=== PATIENT | female | born 1945 | race Caucasian/White ===

== ENCOUNTER → 2017-01-05 | Outpatient (CLI) | payer MEDICARE, BC ==
[~2017-01-05] MED LIST: ALTACE; ASPIRIN; CRESTOR; TOPROL XL; ZETIA
--- NOTE | ~2017-01-05 | CT98 ---
[facility] A Service of [facility] & [facility] RADIOLOGY TEXT RESULTS PATIENT: FRANKI LA LOCATION: [facility] : 47 UNIT #: [id number] AGE: [address]: Juliana Cuellar MD SEX: F ORDER DR: [id number] [place] [id number] MR#: [id number] Acc #: [id number] NAME: FRANKI LA : 1945 SEX: F STUDY DATE/TIME: 01/05/2017 10:50 UNIT: [facility] ROOM: STUDY DESCRIPTION: CT Lumbar Spine Wo Cont Attending Physician: Juliana Cuellar M.D. Referring Physician: Juliana Cuellar M.D. Ordering Physician: Juliana Cuellar M.D. Primary Care Physician: Juliana Cuellar M.D. MEDICAL IMAGING REPORT This report is preliminary unless electronic signature is present. EXAM Lumbar spine CT, no contrast, 01/05/17. PROCEDURE Axial unenhanced lumbar CT with multiplanar reformats. This CT exam was performed with one or more of the following radiation dose reduction techniques: automatic exposure control, adjustment of mA and/or kV according to patient size, and iterative reconstruction. CLINICAL HISTORY Low back and bilateral hip pain for 1 year. FINDINGS Spine alignment is normal. There is no fracture or bone erosion or destruction. The paraspinous soft tissues are remarkable for a nonobstructing stone in the right renal vwd-to-tonlz pole about 7 mm in size. At L1-2, there is a slight disc bulge but no canal or substantial foraminal stenosis. At L2-3, there is a disc bulge and mild canal stenosis and mild or perhaps even [id number] right and mild left foraminal stenosis. At L3-4, there is minimal disc bulge, but no canal stenosis and mild left and borderline right foraminal stenosis. At 4-5, there is no canal stenosis but there is mild left and borderline to mild right foraminal stenosis. At 5-1, there is no canal stenosis, and there is borderline bilateral foraminal narrowing. STS. [facility] A Service of [facility] & [facility] RADIOLOGY TEXT RESULTS PATIENT: FRANKI LA LOCATION: [facility] #: [id number] : [birth year] UNIT #: [id number] AGE: [address]: Juliana Cuellar MD SEX: F ORDER DR: IMPRESSION Mild degenerative changes as above. No acute-appearing abnormality see above for level by level details. Nonobstructing right renal calculus as noted above mid to lower pole measuring about 7 x 10 mm. Dictated by... Huber Matthews M.D. THIS IS AN ELECTRONICALLY VERIFIED REPORT Huber Matthews M.D. at 01/08/2017 2:20 PM MIESHA/edgar TD: 01/05/2017 15:37 JOB #: [id number] MEDICAL IMAGING REPORT Page 1 of 1
== END | disposition home or self-care (01) ==
LOC: SCT 10:00
DX: M54.5 Low back pain (principal); M48.06 Spinal stenosis, lumbar region; M51.26 Other intervertebral disc displacement, lumbar region; N20.0 Calculus of kidney; M25.50 Pain in unspecified joint
CPT/HCPCS: 72131